=== PATIENT | female | born 1985 | race Caucasian/White ===

== ENCOUNTER 2018-01-28 14:43 | Inpatient (IN) | payer OTHER ==
[~2018-01-28] VITALS: Ht 160 cm; Wt 80.5 kg
[2018-02-05] MEDS ORDERED: OXYTOCIN 30U/ 0.9% NaCL 500ML 500 ML IV ONE (18:23)
[2018-02-05] MEDS ORDERED: TERBUTALINE 1 MG/ML, 1ML IVPush PRN (18:30)
[2018-02-05] MEDS ORDERED: FENTANYL PF 100 MCG/2ML IV PRN (18:30)
[2018-02-05] MEDS ORDERED: MISOPROSTOL 25 MCG TABLET VG PRN (18:30)
[2018-02-05] MEDS ORDERED: ONDANSETRON 2MG/ML, 2ML IVPush PRN (18:30)
[2018-02-05] MEDS: LACTATED RINGERS 1,000 ML IV SCH (18:34)
[2018-02-05] MEDS ORDERED: MISOPROSTOL 25 MCG TABLET ONE ×2 (18:41→23:58)
[2018-02-05] MEDS ORDERED: NEWBORN KIT ONE (18:47)
[2018-02-05 18:57] LABS: BASOPHILS # (AUTO) 0.04 x10^3/uL (0-0.1); BASOPHILS % (AUTO) 0 % (0-1); EOSINOPHILS # (AUTO) 0.04 x10^3/uL (0-0.4); EOSINOPHILS % (AUTO) 0 % (1-7); LYMPHOCYTES # (AUTO) 2.03 x10^3/uL (1-3.4); LYMPHOCYTES % (AUTO) 19 % (22-44); MD NO; MEAN CORPUSCULAR HEMOGLOBIN 31.8 pg (27.0-34.8); MEAN CORPUSCULAR HGB CONC 34.5 g/dL (32.4-35.8); MEAN CORPUSCULAR VOLUME 92.1 fL (80-100); MEAN PLATELET VOLUME 8.5 fL (7.4-10.4); MONOCYTES % (AUTO) 6 % (2-9); NEUTROPHILS # (AUTO) 7.98 x10^3/uL (1.8-6.8); NEUTROPHILS % (AUTO) 75 % (42-75); PLATELET COUNT 181 x10^3/uL (130-400); RED CELL DISTRIBUTION WIDTH 13.6 % (9.6-15.2)
[2018-02-05] MEDS ORDERED: FENTANYL/BUPIV./NS/PF 250 ML EPIDCONT SCH (19:54)
[2018-02-05 20:02] VITALS: BP 118/68
[2018-02-05] MEDS ORDERED: FENTANYL PF 500 MCG, BUPIVACAINE/PF 0.5%, 30ML 62.5 ML in SODIUM CHLORIDE 0.9% 177.5 ML EPIDCONT SCH (21:00)
[2018-02-05] MEDS ORDERED: DIPH,PERTUSS(ACELL),TET VAC/PF NC IM-VACC ONE ×2 (21:45→21:55)
[2018-02-06] MEDS: D5%-LACTATED RINGERS 1,000 ML IV SCH ×2 (00:08→19:39)
[2018-02-06] MEDS ORDERED: OXYTOCIN 30U/ 0.9% NaCL 500ML 500 ML IV PRN (04:57)
[2018-02-06] MEDS ORDERED: OXYTOCIN 30U/ 0.9% NaCL 500ML 500 ML ONE (04:59)
[2018-02-06] MEDS ORDERED: MISOPROSTOL 200 MCG TABLET ONE (05:01)
[2018-02-06] MEDS ORDERED: FENTANYL PF 500 MCG, BUPIVACAINE/PF 0.5%, 30ML 62.5 ML in SODIUM CHLORIDE 0.9% 177.5 ML EPIDCONT SCH (05:30)
[2018-02-06] MEDS: LACTATED RINGERS 1,000 ML IV SCH ×4 (06:05→15:46)
[2018-02-06] MEDS ORDERED: FENTANYL PF 100 MCG/2ML ONE ×2 (13:28→14:28)
[2018-02-06] MEDS: FENTANYL PF 100 MCG/2ML IVPush PRN ×2 (13:31→14:30)
[2018-02-06 19:27] VITALS: BP 128/63
[2018-02-07] MEDS ORDERED: FENTANYL PF 100 MCG/2ML ONE (00:05)
[2018-02-07] MEDS ORDERED: BUPIVACAINE/PF 0.25% ONE ×2 (00:05→00:06)
[2018-02-07] MEDS ORDERED: EPHEDRINE 50 MG/ML, 1ML ONE (00:06)
[2018-02-07] MEDS ORDERED: WATER-INJECTION,STERILE 10 ML IV ONE (00:06)
[2018-02-07] MEDS ORDERED: LIDOCAINE-MPF 2% ,5ML ONE (00:06)
[2018-02-07] MEDS ORDERED: PHENYLEPHRINE 10 MG/ML ONE (00:06)
[2018-02-07] MEDS ORDERED: CEFAZOLIN 1,000 MG ONE (00:06)
[2018-02-07] MEDS ORDERED: OXYTOCIN 10 UNITS/ML, 1ML ONE (00:06)
[2018-02-07] MEDS ORDERED: METOCLOPRAMIDE 5 MG/ML, 2ML ONE (00:07)
[2018-02-07] MEDS ORDERED: SODIUM CITRATE/CITRIC ACID 30 ML UDC ONE (00:07)
[2018-02-07] MEDS ORDERED: ROPIvacaine/PF 0.2%, 20 ML ONE (00:07)
[2018-02-07] MEDS ORDERED: LACTATED RINGERS 1,000 ML IV SCH ×2 (00:22)
[2018-02-07] MEDS ORDERED: OXYTOCIN 30U/ 0.9% NaCL 500ML 500 ML IV SCH (00:22)
[2018-02-07] MEDS ORDERED: METOCLOPRAMIDE 5 MG/ML, 2ML IV PRN (00:30)
[2018-02-07] MEDS ORDERED: MISOPROSTOL 200 MCG TABLET PR PRN (00:30)
[2018-02-07] MEDS ORDERED: CALCIUM CARBONATE 500 MG TAB.CHEW PO PRN (00:30)
[2018-02-07] MEDS ORDERED: MEASLES,MUMPS&RUBELLA VACC/PF 0.5 ML SQ-VACC PRN (00:30)
[2018-02-07] MEDS ORDERED: MEPERIDINE/PF 50 MG/ML IVPush PRN (00:30)
[2018-02-07] MEDS ORDERED: DIPH,PERTUSS(ACELL),TET VAC/PF NC IM-VACC PRN (00:30)
[2018-02-07] MEDS ORDERED: ACETAMINOPHEN 325 MG TABLET PO PRN ×3 (00:30)
[2018-02-07] MEDS ORDERED: GLYCERIN ADULT SUPP PR PRN (00:30)
[2018-02-07] MEDS ORDERED: BISACODYL 10 MG SUPP PR PRN (00:30)
[2018-02-07] MEDS ORDERED: ONDANSETRON 2MG/ML, 2ML IV PRN (00:30)
[2018-02-07] MEDS ORDERED: SIMETHICONE 80 MG CHEW TAB PO PRN (00:30)
[2018-02-07] MEDS ORDERED: METHYLERGONOVINE 0.2 MG/ML IM PRN (00:30)
[2018-02-07] MEDS ORDERED: CARBOPROST TROMETHAMINE 250 MCG/ML, 1ML IM PRN (00:30)
[2018-02-07] MEDS ORDERED: MEPERIDINE/PF 100 MG/ML IVPush PRN (00:30)
[2018-02-07] MEDS ORDERED: morphine SULFATE/PF 0.5 MG/ML, 10ML ONE (01:01)
[2018-02-07] MEDS ORDERED: ACETAMINOPHEN 100 ML IVPB ONE (01:30)
[2018-02-07] MEDS ORDERED: KETOROLAC 30 MG/1 ML ONE (03:06)
[2018-02-07] MEDS: KETOROLAC 30 MG/1 ML IV SCH ×4 (03:10→22:55)
[2018-02-07 04:00] VITALS: BP 132/74
[2018-02-07] MEDS ORDERED: HYDROmorphone 1 MG/ML, 1ML IVPush PRN (06:30)
[2018-02-07] MEDS ORDERED: OXYcodone/APAP 5/325MG TABLET PO PRN (06:30)
[2018-02-07] MEDS ORDERED: DIPHENHYDRAMINE 50 MG/ML, 1ML IV PRN (06:30)
[2018-02-07] MEDS ORDERED: ONDANSETRON 2MG/ML, 2ML IVPush PRN (06:30)
[2018-02-07] MEDS ORDERED: NALOXONE 0.4 MG/ML, 1ML IV PRN (06:30)
[2018-02-07 08:35] VITALS: BP 116/72
[2018-02-07] MEDS: PRENATAL VIT/IRON/FA 1 EACH TABLET PO SCH (09:00)
[2018-02-07 09:03] LABS: MEAN CORPUSCULAR HEMOGLOBIN 30.7 pg (27.0-34.8); MEAN CORPUSCULAR HGB CONC 33.4 g/dL (32.4-35.8); MEAN CORPUSCULAR VOLUME 92.1 fL (80-100); MEAN PLATELET VOLUME 8.4 fL (7.4-10.4); PLATELET COUNT 141 x10^3/uL (130-400); RED BLOOD COUNT 3.67 x10^6/uL (3.82-5.3); RED CELL DISTRIBUTION WIDTH 13.7 % (9.6-15.2)
[2018-02-07 10:07] LABS: MD YES
[2018-02-07 10:16] LABS: <PLATELET ESTIMATE> ADEQUATE; <PLT MORPHOLOGY> NORMAL PLT MORPH; <RBC MORPHOLOGY> NORMAL; LYMPH#(MANUAL) 0.84 x10^3/uL (1-3.4); LYMPHS% (MANUAL) 4 % (22-44); SEG#(MANUAL) 20.06 x10^3/uL (1.8-6.8); SEGS% (MANUAL) 96 % (42-75); TOXIC GRAN 1+
[2018-02-07] MEDS ORDERED: METHYLERGONOVINE 0.2 MG/ML IM ONE (12:00)
[2018-02-07 12:40] VITALS: BP 116/73
[2018-02-07 16:50] VITALS: BP 99/65
[2018-02-07 20:00] VITALS: BP 99/64
[2018-02-07] MEDS: DOCUSATE 100 MG CAPSULE PO PRN (22:55)
[2018-02-08 00:30] VITALS: BP 98/61
[2018-02-08] MEDS: OXYcodone/APAP 5/325MG TABLET PO PRN ×5 (04:27→21:53)
[2018-02-08] MEDS: KETOROLAC 30 MG/1 ML IV SCH ×4 (04:27→23:00)
[2018-02-08 08:15] VITALS: BP 123/84
[2018-02-08] MEDS: DOCUSATE 100 MG CAPSULE PO PRN ×2 (08:27→21:06)
[2018-02-08] MEDS: PRENATAL VIT/IRON/FA 1 EACH TABLET PO SCH (08:27)
[2018-02-08 19:45] VITALS: BP 109/71
[2018-02-08] MEDS ORDERED: KETOROLAC 30 MG/1 ML IV ONE (23:45)
[2018-02-09 00:14] VITALS: BP 105/64
[2018-02-09] MEDS: OXYcodone/APAP 5/325MG TABLET PO PRN ×5 (02:42→18:42)
[2018-02-09 06:55] VITALS: BP 125/81
[2018-02-09] MEDS: IBUPROFEN 600 MG TABLET PO PRN ×2 (06:59→18:42)
[2018-02-09] MEDS: DOCUSATE 100 MG CAPSULE PO PRN ×2 (08:36→18:42)
[2018-02-09] MEDS: PRENATAL VIT/IRON/FA 1 EACH TABLET PO SCH (08:37)
[2018-02-09] MEDS ORDERED: OXYcodone 5 MG/5 ML ORAL.SOL UDC PO PRN (20:30)
[2018-02-09 21:00] VITALS: BP 115/75
[2018-02-09] MEDS: OXYcodone IR 5MG TABLET PO PRN (23:18)
[2018-02-10] MEDS: OXYcodone IR 5MG TABLET PO PRN ×2 (03:35→08:16)
[2018-02-10] MEDS: IBUPROFEN 600 MG TABLET PO PRN (03:35)
[2018-02-10 07:25] VITALS: BP 130/81
[2018-02-10] MEDS: DOCUSATE 100 MG CAPSULE PO PRN (08:08)
[2018-02-10] MEDS: PRENATAL VIT/IRON/FA 1 EACH TABLET PO SCH (08:08)
[2018-02-10] MEDS ORDERED: IBUP-1222 PO (10:41)
[2018-02-10] MEDS ORDERED: OXYC-302 PO (10:41)
== END 2018-02-10 12:25 | disposition home or self-care (01) | DRG 766 ==
LOC: LDIP 02-05 18:06 → 2NW 02-07 03:33
PROVIDERS: ADMIT Obstetrics & Gynecology Maternal & Fetal Medicine; ATTEND Obstetrics & Gynecology Maternal & Fetal Medicine
PROC: 10D00Z1 Extraction of Products of Conception, Low, Open Approach (ICD-10-PCS; principal; 2018-02-07)
DX: O48.0 Post-term pregnancy (principal); O62.1 Secondary uterine inertia; Z37.0 Single live birth; Z3A.41 41 weeks gestation of pregnancy
CPT/HCPCS: 36415; J7121; 85025; 86850; 86900; 90715; G0378; J0690; J1885; J2274; J2795; J3010; J3490; J2210; J2370; J2590; J7050; J7120